=== PATIENT | female | born 1980 | race Hispanic/Latino ===

== ENCOUNTER 2021-08-23 23:53 | Emergency (ER) | payer MEDICAID, OTHER ==
[~2021-08-23] VITALS: Ht 157.5 cm; Wt 81.6 kg
[2021-08-23 23:58] VITALS: BP 125/93
[2021-08-24] MEDS: ONDANSETRON 4MG INJ IVP ONE (01:49)
[2021-08-24] MEDS: 0.9%NACL 1000ML 1,000 ML IV ONE (01:49)
[2021-08-24] MEDS: HYDROMORPHONE 1 MG INJ IVP ONE (01:49)
[2021-08-24 01:52] LABS: BASOPHILS % (AUTO) 0.5 % (0.0-5.0); EOSINOPHILS % (AUTO) 3.4 % (0.0-8.0); HEMATOCRIT 28.8 % (36-48); LYMPHOCYTES % (AUTO) 40.9 % (21.0-51.0); MEAN CORPUSCULAR HEMOGLOBIN 21.4 pg (27.0-33.0); MEAN CORPUSCULAR HGB CONC 30.2 g/dL (32.0-36.0); MEAN CORPUSCULAR VOLUME 70.8 fL (79-99); MONOCYTES % (AUTO) 7.4 % (3.0-13.0); NEUTROPHILS % (AUTO) 47.7 % (40.0-77.0); PLATELET COUNT (AUTO) 315 K/uL (130-400); RED BLOOD CELL COUNT(AUTO) 4.07 MIL/uL (4.00-5.50); RED CELL DISTRIBUTION WIDTH 16.5 % (11.0-15.5); WHITE BLOOD COUNT (AUTO) 7.8 K/uL (4.8-10.8)
[2021-08-24 01:54] LABS: APPEARANCE,URINE Cloudy (CLEAR); BILIRUBIN,URINE Negative (NEGATIVE); GLUCOSE, URINE (UA) Negative (NEGATIVE); KETONES,URINE Negative (NEGATIVE); LEUKOCYTE ESTERASE ,URINE Large (NEGATIVE); NITRATE,URINE Negative (NEGATIVE); OCCULT BLOOD,URINE Large (NEGATIVE); PROTEIN,URINE Trace mg/dL (NEGATIVE); UROBILINOGEN,URINE 0.2 mg/dL (0.2-1.0)
[2021-08-24 01:58] LABS: HCG,QUAL RESULT NEGATIVE (NEGATIVE)
[2021-08-24 01:59] LABS: COLOR,URINE PINK (YELLOW)
[2021-08-24 02:03] LABS: BACTERIA,URINE Moderate /HPF (None Seen); CREATININE 0.7 mg/dL (0.5-1.5); MUCUS,URINE Rare LPF (None Seen); POTASSIUM 3.4 mmol/L (3.5-5.1); SQUAMOUS EPITHELIAL CELL,UR Few /HPF (0-2)
[2021-08-24 02:07] LABS: ALBUMIN 3.3 g/dL (3.5-5.0); BILIRUBIN,TOTAL 0.2 mg/dL (0.2-1.0); TOTAL PROTEIN, SERUM 7.3 g/dL (6.0-8.3)
[2021-08-24] MEDS: CEFTRIAXONE 1G VIAL IVP ONE (03:35)
[2021-08-24] MEDS: CEFTRIAXONE 1G VIAL ONE (03:37)
[2021-08-24 04:03] VITALS: BP 121/78
[2021-08-24] MEDS ORDERED: CIPR-278 PO (04:14)
[2021-08-24] MEDS ORDERED: ACET1TAB25 PO (04:14)
== END 2021-08-24 04:33 | disposition home or self-care (01) ==
LOC: EDH 23:53
DX: N20.0 Calculus of kidney (principal); Z79.899 Other long term (current) drug therapy; Z90.49 Acquired absence of other specified parts of digestive tract
CPT/HCPCS: 36415; 74176; 80053; 81001; 81025; 85025; 87077; 87088; 87186; 96361; 96374; 96375; 99284; J0696; J1170; J2405; J7030

== ENCOUNTER 2021-10-24 15:26 | Inpatient (IN) | payer OTHER ==
[~2021-10-24] VITALS: Ht 157.5 cm; Wt 78.5 kg
[~2021-10-24 15:26] MED LIST: ACET1TAB25 PO; CIPR-278 PO
[2021-10-24 16:16] LABS: BASOPHILS % (AUTO) 0.7 % (0.0-5.0); EOSINOPHILS % (AUTO) 1.7 % (0.0-8.0); HEMATOCRIT 30.8 % (36-48); MEAN CORPUSCULAR HEMOGLOBIN 18.7 pg (27.0-33.0); MEAN CORPUSCULAR HGB CONC 28.2 g/dL (32.0-36.0); MEAN CORPUSCULAR VOLUME 66.2 fL (79-99); MONOCYTES % (AUTO) 11.1 % (3.0-13.0); NEUTROPHILS % (AUTO) 52.3 % (40.0-77.0); PLATELET COUNT (AUTO) 387 K/uL (130-400); RED BLOOD CELL COUNT(AUTO) 4.65 MIL/uL (4.00-5.50); RED CELL DISTRIBUTION WIDTH 16.7 % (11.0-15.5); WHITE BLOOD COUNT (AUTO) 8.7 K/uL (4.8-10.8)
[2021-10-24 16:29] LABS: CREATININE 0.8 mg/dL (0.5-1.5); POTASSIUM 3.5 mmol/L (3.5-5.1)
[2021-10-24 16:41] LABS: ALBUMIN 3.6 g/dL (3.5-5.0); BILIRUBIN,TOTAL 0.3 mg/dL (0.2-1.0); TOTAL PROTEIN, SERUM 8.4 g/dL (6.0-8.3)
[2021-10-24 17:02] LABS: APPEARANCE,URINE CLOUDY (CLEAR); COLOR,URINE YELLOW (YELLOW)
[2021-10-24 17:03] LABS: LEUKOCYTE ESTERASE ,URINE MODERATE (NEGATIVE); NITRATE,URINE NEGATIVE (NEGATIVE); UROBILINOGEN,URINE 0.2 mg/dL (0.2-1.0)
[2021-10-24 17:04] LABS: PROTEIN,URINE 100 mg/dL (NEGATIVE)
[2021-10-24 17:05] LABS: BILIRUBIN,URINE NEGATIVE (NEGATIVE); GLUCOSE, URINE (UA) Negative (NEGATIVE); KETONES,URINE NEGATIVE (NEGATIVE); OCCULT BLOOD,URINE LARGE (NEGATIVE)
[2021-10-24 17:14] LABS: WBC,URINE TNTC /HPF (0-1)
[2021-10-24 17:18] LABS: BACTERIA,URINE Moderate /HPF (None Seen); SQUAMOUS EPITHELIAL CELL,UR None Seen /HPF (0-2)
[2021-10-24] MEDS ORDERED: ACETAMINOPHEN 325 MG TAB ONE (17:32)
[2021-10-24] MEDS ORDERED: KETOROLAC 30MG VIAL (30MG/ML) IV ONE (19:00)
[2021-10-24] MEDS ORDERED: IOHEXOL-350 75 ML VIAL IV ONE (19:02)
[2021-10-24] MEDS ORDERED: LEVOFLOXACIN 500 MG/D5W 100 ML 100 ML ONE (20:15)
[2021-10-24] MEDS ORDERED: ONDANSETRON 4MG INJ ONE (20:15)
[2021-10-24] MEDS ORDERED: MORPHINE 4 MG SYG ONE (20:16)
[2021-10-24] MEDS ORDERED: ONDANSETRON 4MG INJ IVP ONE (20:30)
[2021-10-24] MEDS: LEVOFLOXACIN 500 MG/D5W 100 ML 100 ML IV SCH (20:30)
[2021-10-24] MEDS ORDERED: MORPHINE 4 MG SYG IV ONE (20:30)
[2021-10-24] MEDS ORDERED: ACETAMINOPHEN 325 MG TAB PO PRN (21:30)
[2021-10-24] MEDS ORDERED: HYDRALAZINE 20MG/ML VIAL IV PRN (21:30)
[2021-10-24] MEDS: LACTATED RINGERS 1000ML 1,000 ML IV SCH (21:41)
[2021-10-24] MEDS: CEFTRIAXONE 1G VIAL IV SCH (21:41)
[2021-10-24] MEDS: MORPHINE 2 MG SYG IV PRN (22:16)
[2021-10-25 00:48] VITALS: BP 96/31
[2021-10-25] MEDS: MORPHINE 4 MG SYG IV PRN ×5 (01:33→20:08)
[2021-10-25 03:49] VITALS: BP 97/35
[2021-10-25 04:43] LABS: BASOPHILS % (AUTO) 0.7 % (0.0-5.0); EOSINOPHILS % (AUTO) 3.2 % (0.0-8.0); LYMPHOCYTES % (AUTO) 47.5 % (21.0-51.0); MEAN CORPUSCULAR HEMOGLOBIN 18.7 pg (27.0-33.0); MEAN CORPUSCULAR HGB CONC 28.1 g/dL (32.0-36.0); MEAN CORPUSCULAR VOLUME 66.3 fL (79-99); MONOCYTES % (AUTO) 10.3 % (3.0-13.0); PLATELET COUNT (AUTO) 342 K/uL (130-400); RED BLOOD CELL COUNT(AUTO) 4.07 MIL/uL (4.00-5.50); RED CELL DISTRIBUTION WIDTH 16.5 % (11.0-15.5); WHITE BLOOD COUNT (AUTO) 7.1 K/uL (4.8-10.8)
[2021-10-25 04:51] LABS: INR 1.01 (0.85-1.15)
[2021-10-25 04:52] LABS: PARTIAL THROMBOPLASTIN TIME 25.8 SEC (26.3-35.5)
[2021-10-25 04:58] LABS: CREATININE 0.8 mg/dL (0.5-1.5); MAGNESIUM 1.6 mg/dL (1.80-2.40); PHOSPHORUS 3.4 mg/dL (2.5-4.9); POTASSIUM 3.7 mmol/L (3.5-5.1)
[2021-10-25] MEDS: ONDANSETRON 4MG INJ IV PRN ×2 (05:57→17:50)
[2021-10-25 08:00] VITALS: BP 107/64
[2021-10-25] MEDS: FAMOTIDINE 20MG VIAL IV SCH ×2 (10:05→20:40)
[2021-10-25 12:00] VITALS: BP 100/69
[2021-10-25 16:00] VITALS: BP 107/40
[2021-10-25] MEDS: LACTATED RINGERS 1000ML 1,000 ML IV SCH (18:15)
[2021-10-25 20:00] VITALS: BP 106/54
[2021-10-25] MEDS: LEVOFLOXACIN 500 MG/D5W 100 ML 100 ML IV SCH (20:40)
[2021-10-25] MEDS: CEFTRIAXONE 1G VIAL IV SCH (20:40)
[2021-10-26] VITALS: BP 100/53
[2021-10-26] MEDS: MORPHINE 4 MG SYG IV PRN ×4 (00:06→21:06)
[2021-10-26] MEDS: MAGNESIUM 2GM PREMIX 50ML 50 ML IV PRN (00:07)
[2021-10-26] MEDS: LACTATED RINGERS 1000ML 1,000 ML IV SCH ×3 (02:43→22:01)
[2021-10-26 04:00] VITALS: BP 100/46
[2021-10-26] MEDS: ONDANSETRON 4MG INJ IV PRN ×2 (04:25→18:07)
[2021-10-26 04:57] LABS: INR 0.98 (0.85-1.15); PROTHROMBIN TIME 10.7 SEC (9.6-11.6)
[2021-10-26 04:59] LABS: PARTIAL THROMBOPLASTIN TIME 24.3 SEC (26.3-35.5)
[2021-10-26 06:35] LABS: BASOPHILS % (AUTO) 0.5 % (0.0-5.0); EOSINOPHILS % (AUTO) 3.8 % (0.0-8.0); HEMATOCRIT 26.9 % (36-48); LYMPHOCYTES % (AUTO) 37.5 % (21.0-51.0); MEAN CORPUSCULAR HEMOGLOBIN 18.4 pg (27.0-33.0); MEAN CORPUSCULAR HGB CONC 27.5 g/dL (32.0-36.0); MEAN CORPUSCULAR VOLUME 66.7 fL (79-99); MONOCYTES % (AUTO) 7.5 % (3.0-13.0); NEUTROPHILS % (AUTO) 50.5 % (40.0-77.0); PLATELET COUNT (AUTO) 301 K/uL (130-400); RED BLOOD CELL COUNT(AUTO) 4.03 MIL/uL (4.00-5.50); RED CELL DISTRIBUTION WIDTH 16.5 % (11.0-15.5); WHITE BLOOD COUNT (AUTO) 5.6 K/uL (4.8-10.8)
[2021-10-26 06:43] LABS: CREATININE 0.7 mg/dL (0.5-1.5); MAGNESIUM 2.1 mg/dL (1.80-2.40); POTASSIUM 3.7 mmol/L (3.5-5.1)
[2021-10-26 06:44] LABS: RETICULOCYTE % (AUTO) 1.52 % (0.42-2.23)
[2021-10-26 07:12] LABS: INR 0.97 (0.85-1.15); PROTHROMBIN TIME 10.6 SEC (9.6-11.6)
[2021-10-26 07:13] LABS: PARTIAL THROMBOPLASTIN TIME 25.5 SEC (26.3-35.5)
[2021-10-26 07:30] LABS: THYROID STIMULATING HORMONE 2.54 uIU/mL (0.36-3.74)
[2021-10-26 08:00] VITALS: BP_SYST 106; BP_SYST 167; BP_DIAS 54; BP_DIAS 62
[2021-10-26] MEDS: FAMOTIDINE 20MG VIAL IV SCH ×2 (10:10→20:33)
[2021-10-26] MEDS ORDERED: LIDOCAINE HCL 1% MDV 50ML VIAL ONE (10:39)
[2021-10-26] MEDS ORDERED: IODIXANOL 320 MG/ML 100 ML VIAL ONE (10:42)
[2021-10-26] MEDS ORDERED: FENTANYL CITRATE PF 50 MCG/1 ML 2ML VIAL ONE (10:57)
[2021-10-26] MEDS ORDERED: MIDAZOLAM HCL 1 MG/ML 2ML VIAL ONE (10:57)
[2021-10-26] MEDS ORDERED: PHARMACY COMMUNICATION MISC SCH (12:00)
[2021-10-26 12:15] VITALS: BP 104/60
[2021-10-26 16:00] VITALS: BP 117/56
[2021-10-26] MEDS: MORPHINE 2 MG SYG IV PRN (18:07)
[2021-10-26 20:00] VITALS: BP 115/60
[2021-10-26] MEDS: LEVOFLOXACIN 500 MG/D5W 100 ML 100 ML IV SCH (20:32)
[2021-10-26] MEDS: CEFTRIAXONE 1G VIAL IV SCH (21:35)
[2021-10-27] VITALS: BP 99/53
[2021-10-27] MEDS: MORPHINE 4 MG SYG IV PRN ×6 (01:00→23:50)
[2021-10-27 04:00] VITALS: BP 96/50
[2021-10-27 04:48] LABS: BASOPHILS % (AUTO) 0.5 % (0.0-5.0); EOSINOPHILS % (AUTO) 3.3 % (0.0-8.0); HEMATOCRIT 27.8 % (36-48); LYMPHOCYTES % (AUTO) 34.7 % (21.0-51.0); MEAN CORPUSCULAR HEMOGLOBIN 18.7 pg (27.0-33.0); MEAN CORPUSCULAR HGB CONC 27.7 g/dL (32.0-36.0); MEAN CORPUSCULAR VOLUME 67.5 fL (79-99); MONOCYTES % (AUTO) 9.1 % (3.0-13.0); NEUTROPHILS % (AUTO) 52.1 % (40.0-77.0); PLATELET COUNT (AUTO) 311 K/uL (130-400); RED BLOOD CELL COUNT(AUTO) 4.12 MIL/uL (4.00-5.50); RED CELL DISTRIBUTION WIDTH 16.6 % (11.0-15.5); WHITE BLOOD COUNT (AUTO) 6.3 K/uL (4.8-10.8)
[2021-10-27 05:03] LABS: ALBUMIN 2.6 g/dL (3.5-5.0); BILIRUBIN,TOTAL 0.1 mg/dL (0.2-1.0); CREATININE 0.7 mg/dL (0.5-1.5); TOTAL PROTEIN, SERUM 6.8 g/dL (6.0-8.3)
[2021-10-27 07:49] VITALS: BP 101/65
[2021-10-27] MEDS: FAMOTIDINE 20MG VIAL IV SCH ×2 (09:04→19:38)
[2021-10-27] MEDS: ONDANSETRON 4MG INJ IV PRN ×2 (09:05→23:50)
[2021-10-27] MEDS: LACTATED RINGERS 1000ML 1,000 ML IV SCH ×2 (09:19→19:38)
[2021-10-27 12:00] VITALS: BP 112/62
[2021-10-27 16:00] VITALS: BP 117/45
[2021-10-27] MEDS: LEVOFLOXACIN 500 MG/D5W 100 ML 100 ML IV SCH (19:38)
[2021-10-27 20:22] VITALS: BP 118/38
[2021-10-27] MEDS: CEFTRIAXONE 1G VIAL IV SCH (21:13)
[2021-10-28 00:10] VITALS: BP 110/69
[2021-10-28] MEDS: MORPHINE 4 MG SYG IV PRN ×4 (04:02→15:53)
[2021-10-28 04:36] VITALS: BP 103/67
[2021-10-28 05:41] LABS: BASOPHILS % (AUTO) 0.6 % (0.0-5.0); EOSINOPHILS % (AUTO) 3.9 % (0.0-8.0); HEMATOCRIT 30.3 % (36-48); MEAN CORPUSCULAR HEMOGLOBIN 18.6 pg (27.0-33.0); MEAN CORPUSCULAR HGB CONC 27.7 g/dL (32.0-36.0); MEAN CORPUSCULAR VOLUME 67.2 fL (79-99); MONOCYTES % (AUTO) 9.7 % (3.0-13.0); NEUTROPHILS % (AUTO) 49.5 % (40.0-77.0); PLATELET COUNT (AUTO) 302 K/uL (130-400); RED BLOOD CELL COUNT(AUTO) 4.51 MIL/uL (4.00-5.50); RED CELL DISTRIBUTION WIDTH 16.6 % (11.0-15.5); WHITE BLOOD COUNT (AUTO) 7.1 K/uL (4.8-10.8)
[2021-10-28] MEDS: LACTATED RINGERS 1000ML 1,000 ML IV SCH (06:02)
[2021-10-28 06:08] LABS: ALBUMIN 2.8 g/dL (3.5-5.0); BILIRUBIN,TOTAL 0.1 mg/dL (0.2-1.0); CREATININE 0.7 mg/dL (0.5-1.5); TOTAL PROTEIN, SERUM 7.1 g/dL (6.0-8.3)
[2021-10-28 07:37] VITALS: BP 115/55
[2021-10-28] MEDS: FAMOTIDINE 20MG VIAL IV SCH ×2 (08:23→22:32)
[2021-10-28 11:42] VITALS: BP 102/55
[2021-10-28] MEDS ORDERED: LACTULOSE 20 GM/30 ML UDCUP PO PRN (14:30)
[2021-10-28] MEDS: IRON SUCROSE COMPLEX 300 MG in 0.9%NACL 50ML 50 ML IV SCH (15:53)
[2021-10-28 15:58] VITALS: BP 99/50
[2021-10-28] MEDS: KETOROLAC 10 MG TABLET PO PRN (19:01)
[2021-10-28 20:00] VITALS: BP 137/50
[2021-10-28] MEDS: ACETAMINOPHEN WITH CODEINE 1 TAB TAB PO PRN (21:34)
[2021-10-28] MEDS: CEFTRIAXONE 1G VIAL IV SCH (22:35)
[2021-10-28] MEDS: LEVOFLOXACIN 500 MG/D5W 100 ML 100 ML IV SCH (23:02)
[2021-10-29] VITALS: BP 108/60
[2021-10-29] MEDS: KETOROLAC 10 MG TABLET PO PRN ×2 (03:26→15:24)
[2021-10-29 04:00] VITALS: BP 134/70
[2021-10-29 05:36] LABS: BASOPHILS % (AUTO) 0.5 % (0.0-5.0); EOSINOPHILS % (AUTO) 2.7 % (0.0-8.0); HEMATOCRIT 28.2 % (36-48); LYMPHOCYTES % (AUTO) 18.5 % (21.0-51.0); MEAN CORPUSCULAR HEMOGLOBIN 18.5 pg (27.0-33.0); MEAN CORPUSCULAR VOLUME 65.9 fL (79-99); MONOCYTES % (AUTO) 5.6 % (3.0-13.0); NEUTROPHILS % (AUTO) 72.4 % (40.0-77.0); PLATELET COUNT (AUTO) 302 K/uL (130-400); RED BLOOD CELL COUNT(AUTO) 4.28 MIL/uL (4.00-5.50); RED CELL DISTRIBUTION WIDTH 16.6 % (11.0-15.5); WHITE BLOOD COUNT (AUTO) 6.6 K/uL (4.8-10.8)
[2021-10-29 05:44] LABS: CREATININE 0.7 mg/dL (0.5-1.5); MAGNESIUM 1.6 mg/dL (1.80-2.40); POTASSIUM 4.1 mmol/L (3.5-5.1)
[2021-10-29] MEDS: MAGNESIUM 2GM PREMIX 50ML 50 ML IV PRN (07:07)
[2021-10-29 08:00] VITALS: BP 115/67
[2021-10-29] MEDS: FAMOTIDINE 20MG VIAL IV SCH ×2 (09:45→20:39)
[2021-10-29] MEDS: IRON SUCROSE COMPLEX 300 MG in 0.9%NACL 50ML 50 ML IV SCH (09:46)
[2021-10-29] MEDS: ACETAMINOPHEN WITH CODEINE 1 TAB TAB PO PRN ×2 (10:00→20:40)
[2021-10-29 12:59] VITALS: BP 109/59
[2021-10-29] MEDS ORDERED: COMPOUND IV MISC 1 EACH IVSOLN MISC PRN (13:00)
[2021-10-29 17:31] VITALS: BP 105/41
[2021-10-29 20:00] VITALS: BP 112/63
[2021-10-29] MEDS: CEFTRIAXONE 1G VIAL IV SCH (20:39)
[2021-10-30] VITALS: BP 146/62
[2021-10-30 04:00] VITALS: BP 115/76
[2021-10-30 07:04] LABS: BASOPHILS % (AUTO) 0.8 % (0.0-5.0); EOSINOPHILS % (AUTO) 6.6 % (0.0-8.0); LYMPHOCYTES % (AUTO) 41.8 % (21.0-51.0); MEAN CORPUSCULAR HEMOGLOBIN 18.5 pg (27.0-33.0); MEAN CORPUSCULAR HGB CONC 27.7 g/dL (32.0-36.0); MONOCYTES % (AUTO) 10.5 % (3.0-13.0); NEUTROPHILS % (AUTO) 39.6 % (40.0-77.0); PLATELET COUNT (AUTO) 319 K/uL (130-400); RED BLOOD CELL COUNT(AUTO) 4.48 MIL/uL (4.00-5.50); RED CELL DISTRIBUTION WIDTH 17.3 % (11.0-15.5); WHITE BLOOD COUNT (AUTO) 6.1 K/uL (4.8-10.8)
[2021-10-30 07:39] LABS: CREATININE 0.7 mg/dL (0.5-1.5); POTASSIUM 4.4 mmol/L (3.5-5.1)
[2021-10-30 07:59] VITALS: BP 115/74
[2021-10-30] MEDS: FAMOTIDINE 20MG VIAL IV SCH (08:05)
[2021-10-30] MEDS: IRON SUCROSE COMPLEX 300 MG in 0.9%NACL 50ML 50 ML IV SCH (08:05)
[2021-10-30] MEDS: ACETAMINOPHEN WITH CODEINE 1 TAB TAB PO PRN ×2 (08:48→18:51)
[2021-10-30 12:00] VITALS: BP 117/68
[2021-10-30] MEDS: KETOROLAC 10 MG TABLET PO PRN (13:27)
[2021-10-30 16:00] VITALS: BP 127/67
[2021-10-30 20:00] VITALS: BP 114/68
[2021-10-30] MEDS: SULFAMETHOX-TMP DS 800/160 TAB PO SCH (21:16)
[2021-10-30] MEDS: FAMOTIDINE 20MG TAB PO SCH (21:17)
[2021-10-30] MEDS ORDERED: KETOROLAC 15MG/ML VIAL (15MG/ML) ONE (22:59)
[2021-10-30] MEDS ORDERED: KETOROLAC 15MG/ML VIAL (15MG/ML) IV ONE (23:00)
[2021-10-31] VITALS (10 sets, daily range): BP systolic 100–132; BP diastolic 50–84
[2021-10-31 05:35] LABS: HEMATOCRIT 28.6 % (36-48); MEAN CORPUSCULAR HEMOGLOBIN 18.5 pg (27.0-33.0); MEAN CORPUSCULAR HGB CONC 28.3 g/dL (32.0-36.0); MEAN CORPUSCULAR VOLUME 65.4 fL (79-99); RED BLOOD CELL COUNT(AUTO) 4.37 MIL/uL (4.00-5.50); RED CELL DISTRIBUTION WIDTH 17.1 % (11.0-15.5); WHITE BLOOD COUNT (AUTO) 7.7 K/uL (4.8-10.8)
[2021-10-31 06:05] LABS: CREATININE 0.7 mg/dL (0.5-1.5); MAGNESIUM 1.6 mg/dL (1.80-2.40); POTASSIUM 4.1 mmol/L (3.5-5.1)
[2021-10-31 06:07] LABS: % IRON SATURATION 44.8 % (22-44)
[2021-10-31] MEDS ORDERED: EPOETIN ALFA-EPBX (NON-ESRD) 10,000 UNIT/ML VIAL SQ SCH (06:30)
[2021-10-31] MEDS: FAMOTIDINE 20MG TAB PO SCH (07:40)
[2021-10-31] MEDS: SULFAMETHOX-TMP DS 800/160 TAB PO SCH (07:40)
[2021-10-31] MEDS: MAGNESIUM 2GM PREMIX 50ML 50 ML IV PRN (07:41)
[2021-10-31] MEDS ORDERED: Sulfamethox-Tmp Ds 800/160 Tab PO (07:51)
[2021-10-31] MEDS ORDERED: LIDOCAINE HCL 1% MDV 50ML VIAL ONE (09:34)
[2021-10-31] MEDS ORDERED: MAGNESIUM OXIDE 400 MG TABLET PO SCH (10:00)
[2021-10-31] MEDS ORDERED: IODIXANOL 320 MG/ML 100 ML VIAL ONE (10:07)
== END 2021-10-31 16:40 | disposition home or self-care (01) | DRG 690 ==
LOC: EDH 15:26 → EDHIP 21:07 → 3DH 23:28
PROVIDERS: ADMIT Internal Medicine; ATTEND Internal Medicine
PROC: 0T9030Z Drainage of Right Kidney with Drainage Device, Percutaneous Approach (ICD-10-PCS; principal; 2021-10-26)
DX: N13.6 Pyonephrosis (principal); D64.9 Anemia, unspecified; Z20.822 Contact with and (suspected) exposure to COVID-19; N83.201 Unspecified ovarian cyst, right side; K59.00 Constipation, unspecified; D50.9 Iron deficiency anemia, unspecified; N93.9 Abnormal uterine and vaginal bleeding, unspecified; N88.8 Other specified noninflammatory disorders of cervix uteri; B95.61 Methicillin susceptible Staphylococcus aureus infection as the cause of diseases classified elsewhere; Z88.8 Allergy status to other drugs, medicaments and biological substances; Z87.442 Personal history of urinary calculi; Z56.0 Unemployment, unspecified
CPT/HCPCS: 36415; 50432; 74177; 76830; 77001; 80048; 80053; 81001; 81025; 82607; 82728; 82746; 83540; 83550; 83690; 83735; 84100; 84145; 84443; 85025; 85027; 85045; 85610; 85730; 86304; 86316; 86850; 86900; 86901; 87040; 87077; 87088; 87186; 87635; 93005; 99156; C1729; C1769; C1894; G0378; J0696; J1644; J1756; J1885; J1956; J2250; J2270; J2405; J3010; J3475; J3490; J7120; Q9967

== ENCOUNTER 2023-01-24 01:17 | Emergency (ER) | payer OTHER ==
[~2023-01-24] VITALS: Ht 157.5 cm; Wt 76.7 kg
[~2023-01-24 01:17] MED LIST changes: +ACET-2079 PO; -ACET1TAB25 PO; -CIPR-278 PO; +Sulfamethox-Tmp Ds 800/160 Tab PO
[2023-01-24 01:20] VITALS: BP 127/73
[2023-01-24 04:29] LABS: BASOPHILS % (AUTO) 0.3 % (0.0-5.0); EOSINOPHILS % (AUTO) 0.4 % (0.0-8.0); HEMATOCRIT 28.6 % (36-48); LYMPHOCYTES % (AUTO) 14.9 % (21.0-51.0); MEAN CORPUSCULAR HEMOGLOBIN 17.3 pg (27.0-33.0); MEAN CORPUSCULAR HGB CONC 27.3 g/dL (32.0-36.0); MEAN CORPUSCULAR VOLUME 63.6 fL (79-99); MONOCYTES % (AUTO) 4.9 % (3.0-13.0); NEUTROPHILS % (AUTO) 79.2 % (40.0-77.0); PLATELET COUNT (AUTO) 458 K/uL (130-400); RED CELL DISTRIBUTION WIDTH 18.2 % (11.0-15.5); WHITE BLOOD COUNT (AUTO) 13.4 K/uL (4.8-10.8)
[2023-01-24 04:31] LABS: APPEARANCE,URINE CLEAR (CLEAR); BILIRUBIN,URINE NEGATIVE (NEGATIVE); COLOR,URINE LIGHT-YELLOW (YELLOW); GLUCOSE, URINE (UA) NEGATIVE (NEGATIVE); KETONES,URINE NEGATIVE (NEGATIVE); LEUKOCYTE ESTERASE ,URINE 250 Leu/uL (NEGATIVE); NITRATE,URINE NEGATIVE (NEGATIVE); OCCULT BLOOD,URINE LARGE (NEGATIVE); PH,URINE 5.5 (5.0-8.0); PROTEIN,URINE NEGATIVE (NEGATIVE); UROBILINOGEN,URINE 0.2 mg/dL (0.2-1.0)
[2023-01-24 04:36] LABS: HCG,QUALITATIVE URINE NEGATIVE (NEGATIVE)
[2023-01-24 04:38] LABS: CREATININE 0.7 mg/dL (0.5-1.5)
[2023-01-24 04:45] LABS: ALBUMIN 3.5 g/dL (3.5-5.0); BACTERIA,URINE RARE /HPF (None Seen); MUCUS,URINE RARE LPF (None Seen); RBC,URINE 51-100 /HPF (0-1); SQUAMOUS EPITHELIAL CELL,UR RARE /HPF (0-2); TOTAL PROTEIN, SERUM 8.3 g/dL (6.0-8.3)
[2023-01-24] MEDS: KETOROLAC 30MG VIAL (30MG/ML) IVP ONE (05:15)
[2023-01-24] MEDS: KETOROLAC 30MG VIAL (30MG/ML) ONE (05:16)
[2023-01-24] MEDS: ONDANSETRON 4MG INJ ONE (05:18)
[2023-01-24] MEDS: ACETAMINOPHEN 500 MG TABLET ONE (05:18)
[2023-01-24] MEDS: ONDANSETRON 4MG INJ IVP ONE (05:18)
[2023-01-24] MEDS: 0.9%NACL 1000ML 1,000 ML IV ONE ×2 (05:18)
[2023-01-24] MEDS: ACETAMINOPHEN 500 MG TABLET PO ONE (05:19)
[2023-01-24] MEDS ORDERED: ZOSYN 3.375GM +NS 50ML IVPB ONE (06:30)
[2023-01-24] MEDS ORDERED: CEPH500B PO (06:47)
[2023-01-24] MEDS: CEFTRIAXONE 1G VIAL IVP ONE (07:01)
[2023-01-24] MEDS: ZOSYN 3.375GM+NS 50ML 50 ML IVPB ONE (07:01)
[2023-01-24] MEDS: CEFTRIAXONE 1G VIAL IVPB STA (07:01)
== END 2023-01-24 07:16 | disposition home or self-care (01) ==
LOC: EDH 01:17
DX: J02.9 Acute pharyngitis, unspecified (principal); Z20.822 Contact with and (suspected) exposure to COVID-19; Z88.1 Allergy status to other antibiotic agents; Z87.442 Personal history of urinary calculi; Z90.49 Acquired absence of other specified parts of digestive tract
CPT/HCPCS: 99284; 96374; 96375; 87635; 96361; 80053; 83690; 85025; 87077; 87088; 87186; 87880; 87804 ×2; 81001; 81025; 36415; C9803; J7030; J0696; J2405; J1885; J2543

== ENCOUNTER 2023-07-21 23:05 | Emergency (ER) | payer OTHER ==
[~2023-07-21] VITALS: Ht 157.5 cm; Wt 74.1 kg
[~2023-07-21 23:05] MED LIST changes: +CEPH500B PO
[2023-07-22 01:14] LABS: BASOPHILS # (AUTO) 0.05 K/uL (0.00-0.20); BASOPHILS % (AUTO) 0.9 % (0.0-5.0); EOSINOPHILS # (AUTO) 0.14 K/uL (0.00-0.70); EOSINOPHILS % (AUTO) 2.5 % (0.0-8.0); HEMATOCRIT 26.9 % (36-48); IMMATURE GRANULOCYTE ABSOLUTE 0.01 K/uL (0-1); LYMPHOCYTES # (AUTO) 2.6 K/uL (1.0-4.8); LYMPHOCYTES % (AUTO) 47.3 % (21.0-51.0); MEAN CORPUSCULAR HEMOGLOBIN 17.3 pg (27.0-33.0); MEAN CORPUSCULAR HGB CONC 26.8 g/dL (32.0-36.0); MEAN CORPUSCULAR VOLUME 64.5 fL (79-99); MONOCYTES # (AUTO) 0.4 K/uL (0.1-1.0); MONOCYTES % (AUTO) 7.7 % (3.0-13.0); NEUTROPHILS # (AUTO) 2.3 K/uL (1.8-7.7); NEUTROPHILS % (AUTO) 41.4 % (40.0-77.0); PLATELET COUNT (AUTO) 328 K/uL (130-400); RED BLOOD CELL COUNT(AUTO) 4.17 MIL/uL (4.00-5.50); RED CELL DISTRIBUTION WIDTH 18.3 % (11.0-15.5); WHITE BLOOD COUNT (AUTO) 5.6 K/uL (4.8-10.8)
[2023-07-22 01:15] LABS: APPEARANCE,URINE CLEAR (CLEAR); BILIRUBIN,URINE NEGATIVE (NEGATIVE); COLOR,URINE COLORLESS (YELLOW); GLUCOSE, URINE (UA) NEGATIVE (NEGATIVE); KETONES,URINE NEGATIVE (NEGATIVE); LEUKOCYTE ESTERASE ,URINE 250 Leu/uL (NEGATIVE); NITRATE,URINE NEGATIVE (NEGATIVE); OCCULT BLOOD,URINE LARGE (NEGATIVE); PH,URINE 5.5 (5.0-8.0); PROTEIN,URINE NEGATIVE (NEGATIVE); UROBILINOGEN,URINE 0.2 mg/dL (0.2-1.0)
[2023-07-22 01:18] LABS: ADD UA MICROSCOPIC YES
[2023-07-22 01:26] LABS: BACTERIA,URINE Rare /HPF (None Seen); SQUAMOUS EPITHELIAL CELL,UR Rare /HPF (0-2)
[2023-07-22 01:32] LABS: INFLUENZA TYPE A Negative For Type A (NEGATIVE); INFLUENZA TYPE B Negative For Type B (NEGATIVE)
[2023-07-22 01:33] LABS: CREATININE 0.6 mg/dL (0.5-1.5); POTASSIUM 3.3 mmol/L (3.5-5.1)
[2023-07-22 01:38] LABS: SARS-CoV-2, RNA, NAAT NEGATIVE SARS CoV-2 (NEGATIVE)
[2023-07-22 01:38] LABS: ALBUMIN 3.5 g/dL (3.5-5.0); BILIRUBIN,TOTAL 0.2 mg/dL (0.2-1.0)
[2023-07-22] MEDS ORDERED: KETOROLAC 30MG VIAL (30MG/ML) ONE (02:26)
[2023-07-22] MEDS ORDERED: KETOROLAC 30MG VIAL (30MG/ML) IVP ONE (02:30)
[2023-07-22] MEDS ORDERED: CEFTRIAXONE 1G VIAL IVPB ONE (03:30)
[2023-07-22] MEDS ORDERED: PHARMACY COMMUNICATION MISC SCH ×2 (03:30)
[2023-07-22] MEDS ORDERED: CEFTRIAXONE 1G VIAL ONE (03:50)
[2023-07-22 06:22] VITALS: BP 112/70; PULSE 70; RESP 16; O2SAT 99
[2023-07-22] MEDS ORDERED: CEFU500T67 PO (06:46)
[2023-07-22] MEDS ORDERED: IBUP-1493 PO (06:46)
== END 2023-07-22 06:58 | disposition home or self-care (01) ==
LOC: EDH 23:05
DX: N39.0 Urinary tract infection, site not specified (principal); D64.9 Anemia, unspecified; N13.6 Pyonephrosis; Z20.822 Contact with and (suspected) exposure to COVID-19; Z79.899 Other long term (current) drug therapy; Z98.890 Other specified postprocedural states; Z88.8 Allergy status to other drugs, medicaments and biological substances; Z87.442 Personal history of urinary calculi
CPT/HCPCS: 99285; 87635; 80053; 85025; 87077; 87088; 87186; 87804 ×2; 81001; 81025; 36415; 74176; 96374; 76770; 71045; 96375; C9803; J0696; J1885

== ENCOUNTER 2023-12-15 10:17 | Emergency (ER) | payer OTHER ==
[~2023-12-15] VITALS: Ht 157.5 cm; Wt 78.5 kg
[~2023-12-15 10:17] MED LIST changes: +CEFU500T67 PO; +IBUP-1493 PO
[2023-12-15] MEDS ORDERED: IBUP-2077 PO (11:13)
[2023-12-15] MEDS ORDERED: CLIN-141 PO (11:13)
[2023-12-15] MEDS ORDERED: CEFTRIAXONE 1G VIAL IM ONE (11:30)
[2023-12-15] MEDS ORDERED: IBUPROFEN 800 MG TAB PO ONE (11:30)
[2023-12-15 12:09] VITALS: BP 106/43; PULSE 87; RESP 18; O2SAT 98
== END 2023-12-15 12:10 | disposition home or self-care (01) ==
LOC: EDH 10:17
DX: L03.115 Cellulitis of right lower limb (principal); Z79.899 Other long term (current) drug therapy; Z98.890 Other specified postprocedural states; Z88.8 Allergy status to other drugs, medicaments and biological substances
CPT/HCPCS: 99283; 96372; J0696

== ENCOUNTER 2024-10-12 20:26 | Inpatient (IN) | payer SELFPAY ==
[~2024-10-12] VITALS: Ht 157.5 cm; Wt 76.1 kg
[~2024-10-12 20:26] MED LIST changes: +CLIN-141 PO; +IBUP-2077 PO
--- NOTE | 2024-10-12 20:30 | NUR ---
[facility] PROVIDED COVID, FLU AND STREP SWABS COLLECTED AND SENT
[2024-10-12 20:47] LABS: RAPID GROUP A STREP negative (NEGATIVE)
[2024-10-12 20:52] LABS: SARS-CoV-2, RNA, NAAT NEGATIVE SARS CoV-2 (NEGATIVE)
[2024-10-12 20:58] LABS: INFLUENZA TYPE A Negative For Type A (NEGATIVE); INFLUENZA TYPE B Negative For Type B (NEGATIVE)
[2024-10-12 22:45] LABS: APPEARANCE,URINE CLEAR (CLEAR); BILIRUBIN,URINE NEGATIVE (NEGATIVE); COLOR,URINE COLORLESS (YELLOW); GLUCOSE, URINE (UA) NEGATIVE (NEGATIVE); KETONES,URINE NEGATIVE (NEGATIVE); LEUKOCYTE ESTERASE ,URINE 250 Leu/uL (NEGATIVE); NITRATE,URINE NEGATIVE (NEGATIVE); OCCULT BLOOD,URINE NEGATIVE (NEGATIVE); PH,URINE 5.5 (5.0-8.0); PROTEIN,URINE NEGATIVE (NEGATIVE); UROBILINOGEN,URINE 0.2 mg/dL (0.2-1.0)
[2024-10-12 22:54] LABS: HCG,QUALITATIVE URINE NEGATIVE (NEGATIVE)
[2024-10-12 22:55] LABS: BASOPHILS # (AUTO) 0.05 K/uL (0.00-0.20); BASOPHILS % (AUTO) 0.8 % (0.0-5.0); EOSINOPHILS # (AUTO) 0.08 K/uL (0.00-0.70); EOSINOPHILS % (AUTO) 1.3 % (0.0-8.0); HEMATOCRIT 27.1 % (36-48); IMMATURE GRANULOCYTE ABSOLUTE 0.01 K/uL (0-1); LYMPHOCYTES # (AUTO) 1.2 K/uL (1.0-4.8); LYMPHOCYTES % (AUTO) 19.4 % (21.0-51.0); MEAN CORPUSCULAR HEMOGLOBIN 19.5 pg (27.0-33.0); MEAN CORPUSCULAR HGB CONC 28.8 g/dL (32.0-36.0); MEAN CORPUSCULAR VOLUME 67.8 fL (79-99); MONOCYTES # (AUTO) 0.6 K/uL (0.1-1.0); MONOCYTES % (AUTO) 10.4 % (3.0-13.0); NEUTROPHILS # (AUTO) 4.1 K/uL (1.8-7.7); NEUTROPHILS % (AUTO) 67.9 % (40.0-77.0); PLATELET COUNT (AUTO) 308 K/uL (130-400); RED CELL DISTRIBUTION WIDTH 16.9 % (11.0-15.5)
[2024-10-12 22:58] LABS: ADD UA MICROSCOPIC YES
[2024-10-12 23:02] LABS: BACTERIA,URINE RARE /HPF (None Seen); MUCUS,URINE RARE LPF (None Seen); RBC,URINE 0-1 /HPF (0-1); SQUAMOUS EPITHELIAL CELL,UR RARE /HPF (0-2)
[2024-10-12 23:08] LABS: CREATININE 0.7 mg/dL (0.5-1.0); POTASSIUM 3.5 mmol/L (3.5-5.1)
[2024-10-12] MEDS: ondanSETRON 4MG INJ IVP ONE (23:12)
[2024-10-12] MEDS: morPHINE 2 MG SYG IVP ONE (23:12)
[2024-10-12] MEDS: ketOROlac 15MG/ML VIAL (15MG/ML) IV ONE (23:12)
--- NOTE | 2024-10-12 23:20 | HMCIMG ---
CT ABDOMEN/PELVIS W/O CONTRAST HISTORY: Left flank pain COMPARISON: 07/22/2023 TECHNIQUE: Multiple sequential axial images of the abdomen and pelvis were obtained from the dome of the diaphragm through symphysis pubis. Patient was not given contrast through intravenous route. Oral contrast was not given. FINDINGS: No pleural effusion is seen bilaterally. There is no evidence of parenchymal disease or pulmonary nodule of the visualized lower lungs. Degenerative changes of the thoracolumbar spine are present. The heart is not enlarged. Postcholecystectomy changes are seen. Liver measures 16 cm. The liver, spleen, adrenal glands and pancreas are unremarkable. No hydronephrosis is seen on the right. There is left hydronephrosis and left hydroureter suspicious for pyelonephritis. There is left lower pole renal stone measuring 13 mm. Fecal material is seen in the colon. There are normal size retroperitoneal and mesenteric lymph nodes. No ascites is seen. No CT evidence of acute appendicitis is seen. Pelvic sidewalls are symmetric bilaterally. Bladder is well distended without wall thickening. IMPRESSION: 1. There is left hydronephrosis and left hydroureter suspicious for pyelonephritis. There is left lower pole renal stone measuring 13 mm. Urinalysis correlation is recommended. CT was performed with one or more following dose reduction techniques: automated exposure control, adjustment of the mA and kv according to patient's size, or use of a iterative reconstruction technique.
[2024-10-13] VITALS (8 sets, daily range): BP systolic 96–116; BP diastolic 57–87; PULSE 67–80; RESP 16–20; TEMP 97.8–98.7; O2SAT 98–100
[2024-10-13] MEDS: morPHINE 2 MG SYG IVP ONE (00:31)
--- NOTE | 2024-10-13 00:38 | ERN ---
General Chief Complaint: Influenza Stated Complaint: FEVER, RUNNY NOSE, COUGH, ABD PAIN Time Seen by MD: 20:31 Time Seen by Midlevel: 20:31 Source: patient History of Present Illness Initial Comments Patient is a 44-year-old female with a past medical history of kidney stones presents to the emergency department for evaluation of suprapubic abdominal pain that radiates to her left flank. Pain is rated 7/10 and also reports having nausea at home. She reports a fever of 102.3 earlier today. She also reports a cough, congestion, and runny nose. Denies sick contacts. She specifically denies any hematuria or dysuria. Allergies: Coded Allergies: meropenem (Unverified Allergy, Severe, 08/23/21) RASH Home Meds Active Scripts Ibuprofen (Ibuprofen 800 mg Tab) 800 Mg Tab, 800 MG PO Q8H PRN for fever or pain, #30 TAB 0 Refills Prov:ANGEL LOPES NP 12/15/23 Clindamycin HCl (Clindamycin HCl) 300 Mg Capsule, 1 CAP PO QID for 10 Days, #40 CAP 0 Refills Prov:ANGEL LOPES NP 12/15/23 Ibuprofen (Motrin/Advil) 800 Mg Tab, 800 MG PO TID, #30 TAB Prov:RAD RENAE MD 07/22/23 Cefuroxime Axetil (Cefuroxime) 500 Mg Tablet, 500 MG PO BID, #20 TAB Prov:RAD RENAE MD 07/22/23 Cephalexin Monohydrate (Keflex) 500 Mg Cap, 500 MG PO QID for 7 Days, #40 CAP Prov:MIKE HOUSER MD 01/24/23 [Sulfamethox-Tmp Ds 800/160 Tab] 1 TAB TABLET No Conflict Check, 1 TAB PO BID for 5 Days, #10 TAB 0 Refills Prov:STEFANIA ARMSTRONG Jr., MD 10/31/21 Acetaminophen with Codeine (Acetaminophen-Cod #3 Tablet) 1 Each Tablet, 1 TAB PO Q4H PRN for pain, #20 TAB Prov:DAMIR HUFF MD 08/24/21 Past Medical History Past Medical History: No Pertinent History Medical History Other: KIDNEY STONES Past Surgical History: Cholecystectomy, Other Surgical History Other: KIDNEY STONES Family History Family History: Negative Social History Social History: Negative Female( History) History: Not Applicable LMP: Sep 14, 2024 ROS Dictation CONSTITUTIONAL: No chills, no fever, no weakness, no diaphoresis, no malaise. HEAD/FACE: No signs of trauma. EENT: No eye pain, no blurred vision, no tearing, no double vision, no ear pain, no ear discharge, no nose pain, no nasal congestion, no throat pain, no throat swelling, no mouth pain. RESPIRATORY: No cough, no orthopnea, no SOB, no stridor, no wheezing. CARDIOVASCULAR: No chest pain, no edema, no palpitations, no syncope. GASTROINTESTINAL/ABDOMINAL: No abdominal pain, no constipation, no diarrhea, no nausea, no vomiting. GENITOURINARY: No abnormal discharge, no dysuria, no frequent urination, no hematuria. No complaints of pain in the genitals. MUSCULOSKELETAL: No back pain, no gout, no joint pain, no joint swelling, no muscle pain, no muscle stiffness, no neck pain. INTEGUMENTARY: No change in color, no change in hair/nails, no dryness, no lesion, no lumps, no rash. NEUROLOGICAL/PSYCH: No anxiety, not depressed, no emotional problem, no headache, no numbness, no pre-existing deficit, no history of seizures, no tremors, no weakness. HEMATOLOGIC/LYMPHATIC: Not anemic, no history of blood clots, no apparent bleeding, no bruising, glands not swollen. All Systems Negative, Except as Noted. Physical Exam Physical Exam Dictation VITAL SIGNS: Reviewed. GENERAL APPEARANCE: Alert, oriented x3, no acute distress, HEAD AND FACE: Non-traumatic. EYES: PERRL, pink conjunctivas, eyelid no trauma, anterior chamber clear. EARS: Pinnas intact and no signs of trauma or erythema. Ear canals clear and no discharge. TMs no erythema. NOSE: No discharge, no bleeding. OROPHARYNX: Mouth normal, teeth no caries, tongue pink. Pharynx clear, no erythema. Tonsils no exudates, no abscesses noted. Mucous membrane moist. NECK: Supple, non-tender, no thyromegaly, no masses, no JVD, no bruits. BREAST: Deferred. CHEST: No tenderness, no crepitus, no paradoxical movement, no retractions. LUNGS: Clear, well-ventilated, symmetric, no rales, no wheezing, no rhonchi, no stridor, good breath sounds bilaterally. HEART: Regular rate, regular rhythm, no murmur, no gallops. VASCULAR: No peripheral edema. ABDOMEN: Soft, positive bowel sounds, nondistended, no guarding, nontender, no rebound, no masses no hepatomegaly, no splenomegaly, no Dale's sign, no hernias. RECTAL: Deferred. GENITAL: Deferred. NEUROLOGICAL: Normal speech, gross motor function intact, gross sensory function intact. MUSCULOSKELETAL: Neck nontender, full range of motion, back nontender, full range of motion. EXTREMITIES: Nontender, full range of motion. SKIN: Color pink, dry, no turgor, no rash, no lacerations, no abrasions, no contusions. LYMPHATICS: Deferred. Results Laboratory and Microbiology Lab and Micro Result Laboratory Tests Test 10/12/24 20:31 10/12/24 22:24 10/12/24 22:46 Influenza Type A Antigen Negative For Type A Influenza Type B Antigen Negative For Type B SARS-CoV-2, RNA, NAAT NEGATIVE SARS CoV-2 Group A Streptococcus Rapid negative (NEGATIVE) Urine Color COLORLESS (YELLOW) Urine Appearance CLEAR (CLEAR) Urine pH 5.5 (5.0-8.0) Urine Specific [place] 1.003 (1.001-1.031) Urine Protein NEGATIVE mg/dL (NEGATIVE) Urine Glucose (UA) NEGATIVE mg/dL (NEGATIVE) Urine Ketones NEGATIVE mg/dL (NEGATIVE) Urine Occult Blood NEGATIVE (NEGATIVE) Urine Nitrate NEGATIVE (NEGATIVE) Urine Bilirubin NEGATIVE mg/dL (NEGATIVE) Urine Urobilinogen 0.2 mg/dL (0.2-1.0) Urine Leukocyte Esterase 250 Adryan/uL (NEGATIVE) H Urine RBC 0-1 /HPF (0-1) Urine WBC 11-25 /HPF (0-1) H Urine Squamous Epithelial Cells RARE /HPF (0-2) Urine Bacteria RARE /HPF (None Seen) Urine HCG, Qualitative NEGATIVE (NEGATIVE) White Blood Count 6.0 K/uL (4.8-10.8) Red Blood Count 4.00 MIL/uL (4.00-5.50) Hemoglobin 7.8 g/dL (12.0-16.0) L Hematocrit 27.1 % (36-48) L Mean Corpuscular Volume 67.8 fL (79-99) L Mean Corpuscular Hemoglobin 19.5 pg (27.0-33.0) L Mean Corpuscular Hemoglobin Concent 28.8 g/dL (32.0-36.0) L Red Cell Distribution Width 16.9 % (11.0-15.5) H Platelet Count 308 K/uL (130-400) Mean Platelet Volume 9.2 fL (7.5-10.5) Immature Granulocyte % (Auto) 0.2 % (0-1) Neutrophils (%) (Auto) 67.9 % (40.0-77.0) Lymphocytes (%) (Auto) 19.4 % (21.0-51.0) L Monocytes (%) (Auto) 10.4 % (3.0-13.0) Eosinophils (%) (Auto) 1.3 % (0.0-8.0) Basophils (%) (Auto) 0.8 % (0.0-5.0) Neutrophils # (Auto) 4.1 K/uL (1.8-7.7) Lymphocytes # (Auto) 1.2 K/uL (1.0-4.8) Monocytes # (Auto) 0.6 K/uL (0.1-1.0) Eosinophils # (Auto) 0.08 K/uL (0.00-0.70) Basophils # (Auto) 0.05 K/uL (0.00-0.20) Absolute Immature Granulocyte (auto 0.01 K/uL (0-1) Nucleated Red Blood Cells 0.0 % (0.0-0.19) Red Blood Cell Morphology See comments Sodium Level 138 mmol/L (136-145) Potassium Level 3.5 mmol/L (3.5-5.1) Chloride Level 103 mmol/L (101-111) Carbon Dioxide Level 29 mmol/L (21-32) Blood Urea Nitrogen 6 mg/dL (7-18) L Creatinine 0.7 mg/dL (0.5-1.0) Glomerular Filtration Rate Calc 109 mL/min (>90) Random Glucose 102 mg/dL (70-105) Lactic Acid Level 1.1 mmol/L (0.8-2.5) Total Calcium 8.8 mg/dL (8.5-10.1) Labs Reviewed?: Yes MDM MDM: Differential diagnosis: Pyelonephritis, ureter stone, urinary tract infection Rationale: Tests considered and ordered secondary to shared decision making include: labs, ECG and radiology Previous outside records reviewed: Old ER visits. Risk of complication and/or morbidity or mortality of patient management: None Medications-Per medication reconciliation Need for hospitalization: Patient does meet criteria for hospitalization. Need for emergency major/minor surgery: No There are no social concerns with this patient. Prescription drug management Prescriptions will include symptomatic care Patient's prior external medical records from other ER visits were reviewed by me as indicated. Prior testing and results from previous visits were reviewed. Prior tests were taken into account with medical decision making and resource utilization, independent historian/historians were used to obtain complete medical history. I independently interpreted the test that were performed, results were reviewed by me and considered findings on radiology if ordered. Medical management and examination interpretation discussions were had by me with other qualified healthcare professionals as indicated for the patient's care. ED Course Orders Procedure Category Date Status Time Urinalysis Profile LAB 10/12/24 Complete 20:30 ,Urine Test LAB 10/12/24 Complete 20:30 Covid Rna Naat LAB 10/12/24 Complete 20:30 Influenza Type A & B, LAB 10/12/24 Complete Rapid 20:30 Rapid (Group A Strep) LAB 10/12/24 Complete 20:30 Cbc With Differential LAB 10/12/24 Complete 20:56 Basic Metabolic Panel LAB 10/12/24 Complete 20:56 Lactic Acid LAB 10/12/24 Complete 20:56 Ct Abdomen/Pelvis W/O CT 10/12/24 Resulted Contrast 22:47 Culture Urine ADEN 10/12/24 In Process 22:58 Morphine 2mg Syg PHA 10/12/24 Complete (Morphine 2mg Syg) 23:30 Ondansetron 4mg Inj PHA 10/12/24 Complete (Zofran 4mg Inj) 23:30 Ketorolac PHA 10/12/24 Complete Tromethamine 15mg/Ml 23:30 Morphine 2mg Syg PHA 10/13/24 Complete (Morphine 2mg Syg) 00:30 Ceftriaxone 1g Vial PHA 10/13/24 Complete (Rocephine 1g Inj) 00:30 Current Medications Medications (Trade) Dose Ordered Sig/Chas Route PRN Reason Start Time Stop Time Status Last Admin Dose Admin Ceftriaxone Sodium (ROCEphine 1G INJ) 1 gm ONCE ONCE IVPB 10/13/24 00:30 10/13/24 00:33 DC 10/13/24 00:42 Ketorolac Tromethamine (toRADol) 15 mg ONCE ONCE IV 10/12/24 23:30 10/12/24 23:31 DC 10/12/24 23:12 Morphine Sulfate (morPHINE 2MG SYG) 2 mg ONCE ONCE IVP 10/12/24 23:30 10/12/24 23:31 DC 10/12/24 23:12 Morphine Sulfate (morPHINE 2MG SYG) 2 mg ONCE ONCE IVP 10/13/24 00:30 10/13/24 00:31 DC 10/13/24 00:31 Ondansetron HCl (zoFRAN 4MG INJ) 4 mg ONCE ONCE IVP 10/12/24 23:30 10/12/24 23:31 DC 10/12/24 23:12 Vital Signs Date Time Temp Pulse Resp B/P (MAP) Pulse Ox O2 Delivery O2 Flow Rate FiO2 10/13/24 01:23 77 18 108/41 97 Room Air* 0 21 10/13/24 00:05 86 18 125/74 98 Room Air* 0 21 10/12/24 23:20 99.1 90 18 121/68 97 Room Air* 0 21 10/12/24 20:27 99.7 104 20 135/83 100 Room Air [address] [address] IMAGING REPORT Signed PATIENT: NOHELIA SAMUELS MR#: [id number] : 1980 SEX: F AGE: 44 LOCATION: [facility] ORDER 47 STATUS: REG ER REPORT#: [id number] SERVICE 46 REASON: left flank pain r/o kidney stone ORDERING PHYSICIAN: SHERIF MANCERA PROCEDURE: ABD PEL WO - CT ABDOMEN/PELVIS W/O CONTRAST CT ABDOMEN/PELVIS W/O CONTRAST HISTORY: Left flank pain COMPARISON: 07/22/2023 TECHNIQUE: Multiple sequential axial images of the abdomen and pelvis were obtained from the dome of the diaphragm through symphysis pubis. Patient was not given contrast through intravenous route. Oral contrast was not given. FINDINGS: No pleural effusion is seen bilaterally. There is no evidence of parenchymal disease or pulmonary nodule of the visualized lower lungs. Degenerative changes of the thoracolumbar spine are present. The heart is not enlarged. Postcholecystectomy changes are seen. Liver measures 16 cm. The liver, spleen, adrenal glands and pancreas are unremarkable. No hydronephrosis is seen on the right. There is left hydronephrosis and left hydroureter suspicious for pyelonephritis. There is left lower pole renal stone measuring 13 mm. Fecal material is seen in the colon. There are normal size retroperitoneal and mesenteric lymph nodes. No ascites is seen. No CT evidence of acute appendicitis is seen. Pelvic sidewalls are symmetric bilaterally. Bladder is well distended without wall thickening. IMPRESSION: 1. There is left hydronephrosis and left hydroureter suspicious for pyelonephritis. There is left lower pole renal stone measuring 13 mm. Urinalysis correlation is recommended. CT was performed with one or more following dose reduction techniques: automated exposure control, adjustment of the mA and kv according to patient's size, or use of a iterative reconstruction technique. DICTATED BY: NAVID ZIMMERMAN MD DATE: 10/12/242314 ELECTRONICALLY SIGNED BY: NAVID ZIMMERMAN MD DATE: 10/12/24 232 DX & DISP Disposition: Inpatient Decision to Admit Date: Oct 13, 2024 Decision to Admit Time: 01:02 Departure Impression: Primary Impression: Pyelonephritis of left kidney Additional Impressions: Urinary tract infection, Hydronephrosis, left Condition: Stable Referrals: SELF,REFERRAL (PCP) I have reviewed the case, and I agree with, Diagnosis and Plan SHERIF MANCERA Oct 13, 2024 00:38
[2024-10-13] MEDS: cefTRIAXone 1G VIAL IVPB ONE (00:42)
[2024-10-13] MEDS: ketOROlac 15MG/ML VIAL (15MG/ML) IV PRN (03:29)
[2024-10-13] MEDS ORDERED: guaiFENesin-DM 200/20MG 10ML PO PRN (03:30)
--- NOTE | 2024-10-13 03:34 | HP ---
[facility] Date of Service: Oct 13, 2024 Time of Service: 03:05 PCP: Self-referral HISTORY OF PRESENT ILLNESS: This is a 44-year-old female with significant medical history of kidney stone with left nephrostomy tube in the past who presents to the ED for multiple complaints such as nausea, vomitingx1 , diarrhea, cough and left lower quadrant suprapubic pain which radiates to the left lower back which started last Sunday and today she stared having fever and chills with a Temp 0f 102.3.Patient states she started feeling weak and unable to keep anything down because of nausea so she decided to come to the ED for evaluation.Patient reports last bowel movementis today and it is diarrhea. Seen and examined patient in the ED awake,alert and coherent,appears weak looking.Patient denies chest pain palpitation ,shortness of breath and dysuria. Latest vital signs temperature 99 point one, heart rate 84, blood pressure 106/50 saturation 98% on room air. Labs: hemoglobin 7.8, hematocrit 27.1, platelet count 308. Chemistries unremarkable. Urinalysis positive with esterase and WBC. Influenza a and B negative, SARs COVID negative rapid strep negative. CT abdomen and pelvis without contrast result revealed there is left hydronephrosis and left hydroureter suspicious for pyelonephritis. There is left lower pole renal stone measuring 13 mm. While in the ER patient received Rocephin 1 g IV, morphine 2 mg IV, Toradol 15 mg IV, Zofran 4 mg IV. We will admit patient for further medical management. REVIEW OF SYSTEMS CONSTITUTIONAL: Complain of fever and chills Denies night sweats. No uninten tional weight loss reported. NEUROLOGICAL: Denies headache, amaurosis fugax, motor weakness, sensory deficit, vertigo/spinning sensation, gait abnormalities, or tremors. ENT: No hearing loss, otalgia, otorrhea, rhinitis, rhinorrhea, hoarseness, or sore throat. CARDIOVASCULAR: Denies any exertional angina, dyspnea on exertion, orthopnea, paroxysmal nocturnal dyspnea, palpitations, life-threatening arrhythmias, claudication. PULMONARY: Complain of dry cough Denies any shortness of breath,phlegm/sputum, hemoptysis, pleuritic chest pain. SLEEP: Denies morning headaches, daytime somnolence or napping. Denies difficulty falling asleep, staying asleep, waking from sleep. Denies knowledge of snoring. GASTROINTESTINAL: Complained of nausea vomiting and diarrhea Denies any type of dysphagia to either liquids or solids. Denies pyrosis, early satiety, abdomina l pain, constipation, or changes in stool consistency or caliber. Denies coffee-ground emesis, hematemesis, hematochezia, or melanotic stools. GENITOURINARY: Complain of left flank pain Denies frequency, urgency, nocturia, hematuria or incontinence (Storage/Irritative symptoms.) Low urinary stream, straining to void, urinary intermittency or hesitancy, splitting of the voiding stream, terminal dribbling. ENDOCRINOLOGIC: Denies polyuria, polydipsia, polyphagia or heat/cold intolerances. HEMATOLOGIC: Denies thrombophilia/previous clots, or coagulopathy/bleeding disorders. ONCOLOGIC: Denies personal history of malignancy. DERMATOLOGIC: Denies rashes or pruritus. PSYCHIATRIC: Denies any suicidal or homicidal ideation. Denies hallucinations. PAST MEDICAL HISTORY: [ Kidney stone ] PAST SURGICAL HISTORY: [ Left nephrostomy, left renal stent, left breast biopsy and cholecystectomy] PAST SOCIAL HISTORY: [Patient lives with . Patient denies recreational drug use admits to two cigarettes per day and 24 beers per month ] FAMILY HISTORY: [Hypertension, hyperlipidemia and diabetes ] Coded Allergies: meropenem (Unverified Allergy, Severe, 08/23/21) RASH PHYSICAL EXAM GENERAL APPEARANCE: The patient is awake, alert, and oriented, in no acute cardiopulmonary distress. NEUROLOGICAL: Cranial nerves II-XII grossly intact. Motor is 5/5 in bilateral upper and lower extremities proximal to distal. No sensory deficits. HEENT: Face is symmetric. Pupils are equal and reactive. Extraocular movements are intact. NECK: Supple. No JVD. No thyromegaly. No submental, submandibular, pre- /postauricular, occipital or supraclavicular lymphadenopathy. CHEST: Normal chest expansion. No Telemetry. LUNGS: Absence of any rales, rhonchi or any wheezing. CARDIOVASCULAR: Regular. S1 and S2 normal. No appreciable rubs, murmurs or gallops. ABDOMEN: Soft, nontender, and nondistended. There is no rebound, voluntary guarding, or rigidity. : Deferred. No Kelly. EXTREMITIES: Non-edematous and not cyanotic. No clubbing. Good capillary refill. SKIN: No skin breakdown. Vital Sign (Last 24 Hours) 10/12/24 10/13/24 23:20 02:35 Temp 99.1 Pulse 84 Resp 18 B/P (MAP) 106/50 Pulse Ox 98 O2 Delivery Room Air* O2 Flow Rate 0 FiO2 21 LABS: Laboratory: Test 10/12/24 22:46 10/12/24 22:24 10/12/24 20:31 Range/Units White Blood Count 6.0 4.8-10.8 K/uL Red Blood Count 4.00 4.00-5.50 MIL/uL Hemoglobin 7.8 L 12.0-16.0 g/dL Hematocrit 27.1 L 36-48 % Mean Corpuscular Volume 67.8 L 79-99 fL Mean Corpuscular Hemoglobin 19.5 L 27.0-33.0 pg Mean Corpuscular Hemoglobin Concent 28.8 L 32.0-36.0 g/dL Red Cell Distribution Width 16.9 H 11.0-15.5 % Platelet Count 308 130-400 K/uL Mean Platelet Volume 9.2 7.5-10.5 fL Immature Granulocyte % (Auto) 0.2 0-1 % Neutrophils (%) (Auto) 67.9 40.0-77.0 % Lymphocytes (%) (Auto) 19.4 L 21.0-51.0 % Monocytes (%) (Auto) 10.4 3.0-13.0 % Eosinophils (%) (Auto) 1.3 0.0-8.0 % Basophils (%) (Auto) 0.8 0.0-5.0 % Neutrophils # (Auto) 4.1 1.8-7.7 K/uL Lymphocytes # (Auto) 1.2 1.0-4.8 K/uL Monocytes # (Auto) 0.6 0.1-1.0 K/uL Eosinophils # (Auto) 0.08 0.00-0.70 K/uL Basophils # (Auto) 0.05 0.00-0.20 K/uL Absolute Immature Granulocyte (auto 0.01 0-1 K/uL Nucleated Red Blood Cells 0.0 0.0-0.19 % Red Blood Cell Morphology See comments Sodium Level 138 136-145 mmol/L Potassium Level 3.5 3.5-5.1 mmol/L Chloride Level 103 101-111 mmol/L Carbon Dioxide Level 29 21-32 mmol/L Blood Urea Nitrogen 6 L 7-18 mg/dL Creatinine 0.7 0.5-1.0 mg/dL Glomerular Filtration Rate Calc 109 >90 mL/min Random Glucose 102 70-105 mg/dL Lactic Acid Level 1.1 0.8-2.5 mmol/L Total Calcium 8.8 8.5-10.1 mg/dL Urine Color COLORLESS YELLOW Urine Appearance CLEAR CLEAR Urine pH 5.5 5.0-8.0 Urine Specific [place] 1.003 1.001-1.031 Urine Protein NEGATIVE NEGATIVE mg/dL Urine Glucose (UA) NEGATIVE NEGATIVE mg/dL Urine Ketones NEGATIVE NEGATIVE mg/dL Urine Occult Blood NEGATIVE NEGATIVE Urine Nitrate NEGATIVE NEGATIVE Urine Bilirubin NEGATIVE NEGATIVE mg/dL Urine Urobilinogen 0.2 0.2-1.0 mg/dL Urine Leukocyte Esterase 250 H NEGATIVE Adryan/uL Urine RBC 0-1 0-1 /HPF Urine WBC 11-25 H 0-1 /HPF Urine Squamous Epithelial Cells RARE 0-2 /HPF Urine Bacteria RARE None Seen /HPF Urine HCG, Qualitative NEGATIVE NEGATIVE Influenza Type A Antigen Negative For Type A NEGATIVE Influenza Type B Antigen Negative For Type B NEGATIVE SARS-CoV-2, RNA, NAAT NEGATIVE SARS CoV-2 NEGATIVE Group A Streptococcus Rapid negative NEGATIVE DIAGNOSTICS / RADIOLOGY: [ ] ASSESSMENT: Left Hydronephrosis per CT POA Left hydroureter POA Suspected pyelonephritis POA Left renal stone [address] POA Chronic anemia POA Active smoker POA Active alcohol drinker POA PLAN: We will admit patient in medical surgical floor We will keep patient nothing by mouth We will start NS @ 100 ml / hr x2 bags and re evaluate We will start patient on Rocephin 1 g IV b.i.d. for empiric coverage We will start on Famotidine 20 mg IV bid for GI prophylaxis We will replace electrolytes as needed per protocol We will add prn medication for fever,pain,nausea and vomiting We will seek Urology consultation Counseled on cigarette and alcohol use cessation We will request labs in am Further orders to follow depending on above results Case discussed with attending physician and came up with above treatment and plan of care. ADVANCED CARE PLANNING 1. Which of the following were discussed? Hospice Care - No Therapeutic options - Yes Advance Directives - No Other discussions - 2. Discussed with who? Patient 3. Voluntary nature of this service was explained to the patient? Yes 4. Amount of time spent - _19 5. Reviewed by Physician? (if this service was performed by NPP) Yes APatient seen and examined by me. Agree with note by OYSTERMAN SEE ADDITIONAL ORDERS PER CHART DISCUSSED WITH NURSING STAFF RAMÍREZ MATIAS INTEGRATION CONSULTANT Oct 13, 2024 03:34
[2024-10-13] MEDS: 0.9%NACL 1000ML 1,000 ML IV SCH (03:36)
[2024-10-13] MEDS: ondanSETRON 4MG INJ IV PRN (03:36)
--- NOTE | 2024-10-13 04:42 | NUR ---
NURSE BUSY FOR REPORT AT THIS TIME.
--- NOTE | 2024-10-13 05:32 | NUR ---
PATIENT DOES NOT TAKE ANY HOME MEDICATIONS.
[2024-10-13 06:28] LABS: BASOPHILS # (AUTO) 0.04 K/uL (0.00-0.20); EOSINOPHILS # (AUTO) 0.11 K/uL (0.00-0.70); EOSINOPHILS % (AUTO) 2.7 % (0.0-8.0); LYMPHOCYTES # (AUTO) 1.5 K/uL (1.0-4.8); MEAN CORPUSCULAR HEMOGLOBIN 19.5 pg (27.0-33.0); MEAN CORPUSCULAR HGB CONC 28.1 g/dL (32.0-36.0); MEAN CORPUSCULAR VOLUME 69.3 fL (79-99); MONOCYTES # (AUTO) 0.5 K/uL (0.1-1.0); MONOCYTES % (AUTO) 11.6 % (3.0-13.0); NEUTROPHILS % (AUTO) 48.7 % (40.0-77.0); PLATELET COUNT (AUTO) 290 K/uL (130-400); RED BLOOD CELL COUNT(AUTO) 3.75 MIL/uL (4.00-5.50); RED CELL DISTRIBUTION WIDTH 17.3 % (11.0-15.5); WHITE BLOOD COUNT (AUTO) 4.1 K/uL (4.8-10.8)
[2024-10-13 06:37] LABS: ALBUMIN 2.9 g/dL (3.5-5.0); BILIRUBIN,TOTAL 0.1 mg/dL (0.2-1.0); CREATININE 0.7 mg/dL (0.5-1.0); MAGNESIUM 1.8 mg/dL (1.80-2.40); POTASSIUM 3.5 mmol/L (3.5-5.1)
[2024-10-13] MEDS: FAMOTIDINE 20MG VIAL IV SCH (08:40)
[2024-10-13] MEDS: cefTRIAXone 1G VIAL IVPB SCH (08:40)
[2024-10-13] MEDS ORDERED: cefTRIAXone 1G VIAL 1 GM in 0.9%NACL 50ML 50 ML IV SCH (09:00)
--- NOTE | 2024-10-13 15:09 | NUR ---
DCP: HOME met with pt and he Salomón Devi [phone]. Pt reports she is independent of all her ADLS, uses no DME or in home care services. Pt has no insurance or PCP, community resources were given. Uses [facility] for rx. transports as needed, couple deny dc needs and [place] at [place]. Addendum: 10/13/24 at 1515 by ANAHI CAGE SS Amended: Links added.
[2024-10-14 05:13] VITALS: BP 133/73; PULSE 71; RESP 20; TEMP 98.1
[2024-10-14 06:06] LABS: ALBUMIN 2.6 g/dL (3.5-5.0); BILIRUBIN,TOTAL 0.1 mg/dL (0.2-1.0); CREATININE 0.6 mg/dL (0.5-1.0); MAGNESIUM 1.8 mg/dL (1.80-2.40); POTASSIUM 3.9 mmol/L (3.5-5.1); TOTAL PROTEIN, SERUM 6.4 g/dL (6.0-8.3)
[2024-10-14 06:07] LABS: HEMATOCRIT 25.7 % (36-48); MEAN CORPUSCULAR HEMOGLOBIN 19.8 pg (27.0-33.0); MEAN CORPUSCULAR VOLUME 70.6 fL (79-99); RED BLOOD CELL COUNT(AUTO) 3.64 MIL/uL (4.00-5.50); RED CELL DISTRIBUTION WIDTH 17.5 % (11.0-15.5)
[2024-10-14 08:00] VITALS: O2SAT 100
[2024-10-14 08:12] VITALS: BP 119/84; PULSE 80; RESP 16; TEMP 98.6
[2024-10-14] MEDS ORDERED: LEVO-70 PO (11:08)
[2024-10-14 11:12] VITALS: BP 114/68; PULSE 77; RESP 16; TEMP 98.7
--- NOTE | 2024-10-14 11:12 | DS ---
Discharge Summary Hospital Course Summary: Patient admitted to the hospital October 13, 2024 with the following history of the present illness: This is a 44-year-old female with significant medical history of kidney stone with left nephrostomy tube in the past who presented to the ED for multiple complaints such as nausea, vomitingx1 , diarrhea, cough and left lower quadrant suprapubic pain which radiated to the left lower back. Seen and examined patient in the ED awake,alert and coherent,appears weak looking. Patient denied chest pain palpitation ,shortness of breath and dysuria. Latest vital signs temperature 99 point one, heart rate 84, blood pressure 106/50 saturation 98% on room air. Labs: hemoglobin 7.8, hematocrit 27.1, platelet count 308. Chemistries unremarkable. Urinalysis positive with esterase and WBC. nfluenza a and B negative, SARs COVID negative rapid strep negative. CT abdomen and pelvis without contrast result revealed there is left hydronephrosis and left hydroureter suspicious for pyelonephritis. There is left lower pole renal stone measuring 13 mm. While in the ER patient received Rocephin 1 g IV, morphine 2 mg IV, Toradol 15 mg IV, Zofran 4 mg IV. We will admit patient for further medical management. Patient admitted to the medical floor, supportive care with IV fluids, empiric antibiotics and pain medication given. Results of urine culture showing E coli sensitive to multiple antibiotics.While in the hospital, the results of the CT of the abdomen were reviewed, discussed with the patient and the , renal function is unremarkable. Today the patient is hemodynamically stable, alert oriented x3, afebrile, plan is for the patient to be discharged home today. PHYSICAL EXAM GENERAL APPEARANCE: The patient is awake, alert, and oriented, in no acute cardiopulmonary distress. NEUROLOGICAL: Cranial nerves II-XII grossly intact. Motor is 5/5 in bilateral upper and lower extremities proximal to distal. No sensory deficits. HEENT: Face is symmetric. Pupils are equal and reactive. Extraocular movements are intact. NECK: Supple. No JVD. No thyromegaly. No submental, submandibular, pre- /postauricular, occipital or supraclavicular lymphadenopathy. CHEST: Normal chest expansion. No Telemetry. LUNGS: Absence of any rales, rhonchi or any wheezing. CARDIOVASCULAR: Regular. S1 and S2 normal. No appreciable rubs, murmurs or gallops. ABDOMEN: Soft, nontender, and nondistended. There is no rebound, voluntary guarding, or rigidity. : Deferred. No Kelly. EXTREMITIES: Non-edematous and not cyanotic. No clubbing. Good capillary refill. SKIN: No skin breakdown. Assessment/Plan: Final diagnosis Left Hydronephrosis per CT POA Left hydroureter POA Suspected pyelonephritis POA Left renal stone [address] POA Chronic anemia POA Active smoker POA Discharge Instructions: Patient to follow up with her PCP as an outpatient and to return to the hospital if her condition changes. Patient agreed with the plan and understood the information provided. Home Medications: Active Scripts Ibuprofen (Ibuprofen 800 mg Tab) 800 Mg Tab, 800 MG PO Q8H PRN for fever or pain, #30 TAB 0 Refills Prov:ANGEL LOPES NP 12/15/23 Clindamycin HCl (Clindamycin HCl) 300 Mg Capsule, 1 CAP PO QID for 10 Days, #40 CAP 0 Refills Prov:ANGEL LOPES NP 12/15/23 Ibuprofen (Motrin/Advil) 800 Mg Tab, 800 MG PO TID, #30 TAB Prov:RAD RENAE MD 07/22/23 Cefuroxime Axetil (Cefuroxime) 500 Mg Tablet, 500 MG PO BID, #20 TAB Prov:RAD RENAE MD 07/22/23 Cephalexin Monohydrate (Keflex) 500 Mg Cap, 500 MG PO QID for 7 Days, #40 CAP Prov:MIKE HOUSER MD 01/24/23 [Sulfamethox-Tmp Ds 800/160 Tab] 1 TAB TABLET No Conflict Check, 1 TAB PO BID for 5 Days, #10 TAB 0 Refills Prov:STEFANIA ARMSTRONG Jr., MD 10/31/21 Acetaminophen with Codeine (Acetaminophen-Cod #3 Tablet) 1 Each Tablet, 1 TAB PO Q4H PRN for pain, #20 TAB Prov:DAMIR HUFF MD 08/24/21 Time spent arranging discharge: 31-60 minutes LILLIE LANTIGUA MD Oct 14, 2024 11:12
== END 2024-10-14 12:30 | disposition home or self-care (01) | DRG 690 ==
LOC: EDH 20:26 → EDHIP 20:27 → UNDOADMIN 22:41 → EDHIP 10-13 03:12 → UNDOADMIN 10-13 03:12 → 4DH 10-13 05:05 → EDHIP 10-13 05:05
PROVIDERS: ADMIT Hospitalist; ATTEND Hospitalist
DX: N13.6 Pyonephrosis (principal); D64.9 Anemia, unspecified; N20.0 Calculus of kidney; J11.1 Influenza due to unidentified influenza virus with other respiratory manifestations; Z83.3 Family history of diabetes mellitus; F17.210 Nicotine dependence, cigarettes, uncomplicated; Z87.442 Personal history of urinary calculi; Z82.49 Family history of ischemic heart disease and other diseases of the circulatory system; Z90.49 Acquired absence of other specified parts of digestive tract; Z79.899 Other long term (current) drug therapy
CPT/HCPCS: 36415; 74176; 80048; 80053; 81001; 81025; 83605; 83735; 85025; 85027; 87086; 87186; 87635; 87804; 87880; 96365; 96375; 99285; G0378; J0696; J1885; J2270; J2405; J3490; J7030